=== PATIENT | male | born 1955 | race African-American/Black ===

== ENCOUNTER 2016-06-17 22:37 | Emergency (ER) | payer MEDICAID ==
[~2016-06-17] VITALS: Ht 172.7 cm; Wt 82.0 kg
[2016-06-17 22:46] VITALS: BP 144/84
[2016-06-17] MEDS ORDERED: ACETAMINOPHEN 325MG TABLET PO ONE (23:45)
== END 2016-06-18 01:41 | disposition home or self-care (01) ==
LOC: ER 23:22
DX: S90.01XA Contusion of right ankle, initial encounter (principal); S80.02XA Contusion of left knee, initial encounter; F20.9 Schizophrenia, unspecified; I10 Essential (primary) hypertension; F31.9 Bipolar disorder, unspecified; Z88.6 Allergy status to analgesic agent; W22.8XXA Striking against or struck by other objects, initial encounter; Y93.89 Activity, other specified; Y99.8 Other external cause status; Y92.098 Other place in other non-institutional residence as the place of occurrence of the external cause
CPT/HCPCS: 73610; 99284

== ENCOUNTER 2016-08-04 03:23 | Emergency (ER) | payer MEDICAID ==
[~2016-08-04] VITALS: Ht 172.7 cm; Wt 79.0 kg
[2016-08-04] MEDS ORDERED: SODIUM CHLORIDE 0.9% 1,000 ML IV ONE (03:49)
[2016-08-04 04:08] LABS: BASOPHILS % 0.6 % (0.0-2.0); EOSINOPHILS % 1.8 % (0.0-5.0); HEMOGLOBIN. 12.4 g/dL (14.0-18.0); LYMPHOCYTES % 16.3 % (20.0-50.0); MEAN CORPUSCULAR HEMOGLOBIN 28.5 pg (28.0-32.0); MEAN CORPUSCULAR VOLUME 87.2 fL (80.0-94.0); MEAN PLATELET VOLUME 7.5 fl (7.4-10.4); MONOCYTES % 4.8 % (2.0-8.0); NEUTROPHILS % 76.5 % (40.0-76.0); PLATELET 265 x1000/uL (130-400); RED BLOOD CELL COUNT 4.36 mill/uL (4.7-6.1); RED CELL DISTRIBUTION WIDTH 15.7 % (11.6-14.6)
[2016-08-04 04:18] LABS: CARBON DIOXIDE 24 mEq/L (21-32); CHLORIDE 109 mEq/L (98-107); TROPONIN I < 0.02 ng/mL (0.00-0.04)
[2016-08-04 06:42] VITALS: BP 154/76
== END 2016-08-04 06:43 | disposition home or self-care (01) ==
LOC: ER 03:23
DX: R42 Dizziness and giddiness (principal); R53.1 Weakness; M54.9 Dorsalgia, unspecified; G89.29 Other chronic pain; F17.200 Nicotine dependence, unspecified, uncomplicated; Z88.8 Allergy status to other drugs, medicaments and biological substances
CPT/HCPCS: 36415; 80053; 84484; 85025; 93005; 96360; 96361; 99285; J7030; Z7610

== ENCOUNTER 2018-04-06 18:37 | Emergency (ER) | payer MEDICAID ==
[~2018-04-06] VITALS: Ht 172.7 cm; Wt 80.0 kg
[2018-04-06] MEDS ORDERED: ACETAMINOPHEN 325MG TABLET PO ONE (23:15)
[2018-04-07 00:45] VITALS: BP 135/72
== END 2018-04-07 00:47 | disposition home or self-care (01) ==
LOC: ER 20:16
DX: S93.601A Unspecified sprain of right foot, initial encounter (principal); R51 Headache; I10 Essential (primary) hypertension; R56.9 Unspecified convulsions; N28.9 Disorder of kidney and ureter, unspecified; F31.9 Bipolar disorder, unspecified; F10.20 Alcohol dependence, uncomplicated; Z88.6 Allergy status to analgesic agent; Z88.8 Allergy status to other drugs, medicaments and biological substances; W18.39XA Other fall on same level, initial encounter; Y93.89 Activity, other specified; Y92.89 Other specified places as the place of occurrence of the external cause; Y99.8 Other external cause status; Y90.9 Presence of alcohol in blood, level not specified
CPT/HCPCS: 99284